=== PATIENT | female | born 1950 | race Caucasian/White ===

== ENCOUNTER → 2021-07-28 10:04 | Outpatient (CLI) | payer MEDICARE, BC, SELFPAY | PROVIDERS: PCP Internal Medicine; Visit Provider Nurse Practitioner | DX: Z20.822 Contact with and (suspected) exposure to COVID-19 (principal) | CPT/HCPCS: C9803; U0003; U0005 ==

== ENCOUNTER → 2021-08-11 08:11 | Outpatient (CLI) | payer MEDICARE, BC, SELFPAY | PROVIDERS: PCP Internal Medicine; Visit Provider Nurse Practitioner | DX: Z20.822 Contact with and (suspected) exposure to COVID-19 (principal) | CPT/HCPCS: C9803; U0003; U0005 ==

== ENCOUNTER → 2021-08-31 08:24 | Outpatient (CLI) | payer MEDICARE, BC, SELFPAY | PROVIDERS: Visit Provider Nurse Practitioner | DX: U07.1 COVID-19 (principal) | CPT/HCPCS: C9803; U0003; U0005 ==

== ENCOUNTER → 2022-02-26 08:35 | Outpatient (CLI) | payer MEDICARE, OTHER, SELFPAY ==
--- NOTE | 2022-02-26 08:41 | XR_ITS ---
FINAL REPORT CLINICAL HISTORY: pain FINDINGS: LEFT FOOT Three weight-bearing views of the left foot demonstrate no acute fracture or dislocation. There is hallux valgus deformity. There is mild degenerative change. There are calcaneal spurs. The soft tissues are unremarkable. IMPRESSION: Mild degenerative change. Reviewed, Interpreted and Dictated by Rasta Moreno III, MD Transcribed by Kaycee Rajput Authenticated and [facility]
--- NOTE | 2022-02-26 08:41 | XR_ITS ---
FINAL REPORT CLINICAL HISTORY: pain, hx of bone spur FINDINGS: RIGHT FOOT Three weight-bearing views of the right foot demonstrate no acute fracture or dislocation. There is hallux valgus deformity. There is mild degenerative change. There are calcaneal spurs. The soft tissues are unremarkable. IMPRESSION: Mild degenerative change. Reviewed, Interpreted and Dictated by Rasta Moreno III, MD Transcribed by Kaycee Rajput Authenticated and . [facility]
== END ==
PROVIDERS: PCP Internal Medicine; Visit Provider Podiatrist
DX: M79.672 Pain in left foot (principal); M79.671 Pain in right foot
CPT/HCPCS: 73630

== ENCOUNTER → 2022-04-13 09:55 | Outpatient (CLI) | payer MEDICARE, BC, SELFPAY ==
[2022-04-13 16:13] LABS: Basophils # 0.1 K/mm3 (0-0.2); Basophils % 1.9 % (0.1-2.0); Eosinophils # 0.1 K/mm3 (0.0-0.4); Eosinophils % 1.9 % (0.1-12.0); Hematocrit 42.5 % (37.0-47.0); Hemoglobin 13.1 g/dL (12.2-16.2); Lymphocytes # 0.9 K/mm3 (0.7-4.5); Lymphocytes % 14.8 % (10-50); Mean Corpuscular HGB Conc 30.7 g/dL (31.8-35.4); Mean Corpuscular Hemoglobin 29.4 pg (27.0-31.2); Mean Corpuscular Volume 95.6 fl (81-99); Mean Platelet Volume 9.9 fl (7.4-10.4); Monocytes # 0.4 K/mm3 (0.1-1.0); Monocytes % 6.5 % (1.7-9.3); Neutrophils # 4.3 K/mm3 (1.8-7.8); Neutrophils % 74.9 % (37.0-80.0); Platelet Count 286 K/mm3 (142-424); Red Blood Count 4.44 M/mm3 (4.20-5.40); Red Cell Distribution Width 13.4 % (11.5-17.5); White Blood Count 5.8 K/mm3 (4.8-10.8)
[2022-04-13 16:58] LABS: Alanine Aminotransferase 20 U/L (12-78); Albumin Level 4.2 g/dl (3.5-5.0); Albumin/Globulin Ratio 1.9 (1.1-1.8); Alkaline Phosphatase 113 U/L (38-126); Anion Gap 10.2 mEq/L (5-15); Aspartate Amino Transferase 29 U/L (14-36); Bilirubin,Total 0.3 mg/dl (0.2-1.3); Blood Urea Nitrogen 20 mg/dl (7-17); Calcium 9.3 mg/dl (8.4-10.2); Carbon Dioxide 28 mmol/L (22.0-30.0); Chloride 106 mmol/L (98-107); Chol/HDL Ratio 4.6 (1-3.5); Cholesterol 222 mg/dl (140-200); Estimated Glomerular Filt Rate 83 ml/min (>60); GFR (African American) 100 ML/MIN (>60); Globulin 2.2 g/dL (1.3-3.2); Glucose 87 mg/dl (74-100); HDL Cholesterol 48 mg/dl (40-60); Potassium 4.2 mmoL/L (3.5-5.1); Sodium 140 mmol/L (136-145); Total Protein,Serum 6.4 g/dl (6.3-8.2); Triglycerides 144 mg/dl (30-150); VLDL Cholesterol 29 mg/dL (0-40)
[2022-04-15 08:24] LABS: Direct LDL Cholesterol 135 mg/dL (100-129)
== END ==
PROVIDERS: PCP Internal Medicine; Visit Provider Internal Medicine
DX: R00.2 Palpitations (principal); I10 Essential (primary) hypertension; E78.5 Hyperlipidemia, unspecified; F41.9 Anxiety disorder, unspecified; K21.9 Gastro-esophageal reflux disease without esophagitis
CPT/HCPCS: 80053; 80061; 85025

== ENCOUNTER 2022-04-22 09:00 | Outpatient (RCR) | payer MEDICARE, BC, SELFPAY ==
--- NOTE | 2022-04-13 17:53 | HMH.PTOPEV ---
PT Outpatient Evaluation Rehab PT Outpatient Evaluation Start: 04/13/22 17:37 Freq: Status: Active Protocol: Document 04/13/22 17:37 CACHORRO (Rec: 04/13/22 17:53 CACHORRO [id number]) E-signed By Joby Reyes, PT Outpatient Therapy Subjective History Subjective History Patient is a 71 year old female presenting to outpatient PT with reports of B foot/ankle pain (R>L) starting approx 2 year ago of insidious onset. Most recent imaging indicates B bunions and calcaneal spurs. Patient referred for B achilles tendonitis. No other comorbidities to report. Chief Complaint Pain,Stiff,Swelling Symptom Type Burning Symptoms Relieved By Rest/Positioning,Heat,OTC Meds Prior Functional Limitations None Current Functional Limitations Housework,Standing,Walking Symptom Description Intermittent Level of pain today (0-10) 0 Pain scale - at its best (0-10) 0 Pain scale - at its worst (0-10) 8 Ankle/Foot Eval Gait Observation General Gait Pattern Observation Antalgic Gait,Decrease Weight Bear (R) Palpation Tenderness bilateral Ankle/Foot Palpation Findings Tenderness Ankle/Foot Palpation Overall Comment Distal achilles insertion R>L (3/4, 2/4) ROM left Ankle/Foot Dorsiflexion w/Knee Extended 0 Active Range Motion (degrees) Ankle/Foot Dorsiflexion w/Knee Extended 6 Passive Range (degrees) Ankle/Foot Plantar Flexion Active Range WFL of Motion (degrees) Ankle/Foot Eversion Active Range of WFL Motion (degrees) Ankle/Foot Inversion Active Range of WFL Motion (degrees) Ankle/Foot ROM Limitations Soft Tissue Tightness Great Toe ROM Reason Not Measured Within Functional Limits right Ankle/Foot Dorsiflexion w/Knee Extended -2 Active Range Motion (degrees) Ankle/Foot Dorsiflexion w/Knee Extended 5 Passive Range (degrees) Ankle/Foot Plantar Flexion Active Range WFL of Motion (degrees) Ankle/Foot Eversion Active Range of WFL Motion (degrees) Ankle/Foot Inversion Active Range of WFL Motion (degrees) Great Toe ROM Reason Not Measured Within Functional Limits MMT bilateral Ankle Dorsiflexion Strength Grade 5 Normal Ankle Plantarflexion Strength Grade 5 Normal Foot Eversion Strength Grade 5 Normal Foot Inversion Strength Grade 5 Normal Special Tests Ankle Anterior Drawer Test Negative Left,Negative Right Ankle Eversion Test
== END 2022-04-22 09:05 | disposition home or self-care (01) ==
LOC: PT 09:00
PROVIDERS: PCP Internal Medicine; Visit Provider Podiatrist
DX: M76.62 Achilles tendinitis, left leg (principal); M19.071 Primary osteoarthritis, right ankle and foot; M19.072 Primary osteoarthritis, left ankle and foot; R60.0 Localized edema; M76.61 Achilles tendinitis, right leg
CPT/HCPCS: 97010; 97014; 97035; 97110; 97163; G0283

== ENCOUNTER 2023-04-26 14:17 | Emergency (ER) | payer MEDICARE, BC, SELFPAY ==
[2023-04-26] VITALS (8 sets, daily range): BP systolic 113–158; BP diastolic 63–109; PULSE 86–97; RESP 16–23; TEMP 36.8; O2SAT 91–100; BMI 28.5; BMI 26.8
--- NOTE | 2023-04-26 14:16 | ECG_ITS ---
APPROVED REPORT Exam: Resting ECG HR:93 bpm ECG Measurements Heart Rate 93 AXES CO 152 P 56 QRSd 108 QRS 52 QT 353 T -22 QTc 404 Conclusion SINUS RHYTHM NONSPECIFIC ST & T-WAVE ABNORMALITY ABNORMAL ECG UNCONFIRMED REPORT Electronically signed by : James Mo MD 04/26/2023 19:55:42
[2023-04-26 14:39] LABS: Basophils # 0.1 K/mm3 (0-0.2); Eosinophils # 0.1 K/mm3 (0.0-0.4); Eosinophils % 1.6 % (0.1-12.0); Hematocrit 41.6 % (37.0-47.0); Hemoglobin 13.4 g/dL (12.2-16.2); Lymphocytes # 1.1 K/mm3 (0.7-4.5); Lymphocytes % 15.4 % (10-50); Mean Corpuscular HGB Conc 32.3 g/dL (31.8-35.4); Mean Corpuscular Hemoglobin 29.2 pg (27.0-31.2); Mean Corpuscular Volume 90.6 fl (81-99); Mean Platelet Volume 8.1 fl (7.4-10.4); Monocytes # 0.5 K/mm3 (0.1-1.0); Monocytes % 6.6 % (1.7-9.3); Neutrophils # 5.3 K/mm3 (1.8-7.8); Neutrophils % 75.4 % (37.0-80.0); Platelet Count 280 K/mm3 (142-424)
[2023-04-26 14:40] LABS: Chloride 107 mmol/L (98-107); Potassium 3.7 mmoL/L (3.5-5.1); Sodium 144 mmol/L (136-145)
[2023-04-26 14:43] LABS: Alanine Aminotransferase 18 U/L (12-78); Albumin Level 3.9 g/dl (3.5-5.0); Albumin/Globulin Ratio 1.6 (1.1-1.8); Alkaline Phosphatase 100 U/L (38-126); Anion Gap 12.7 mEq/L (5-15); Aspartate Amino Transferase 26 U/L (14-36); Bilirubin,Total 0.4 mg/dl (0.2-1.3); Blood Urea Nitrogen 21 mg/dl (7-17); Calcium 8.9 mg/dl (8.4-10.2); Carbon Dioxide 28 mmol/L (22.0-30.0); Creatinine Clearance Estimated 60 mL/min (50-200); Estimated Glomerular Filt Rate 55 ml/min (>60); GFR (African American) 66 ML/MIN (>60); Globulin 2.5 g/dL (1.3-3.2); Glucose 162 mg/dl (74-100); Total Protein,Serum 6.4 g/dl (6.3-8.2)
[2023-04-26 14:45] LABS: Microscopic, Urine URINE MICROSCOPIC (MICROSCOPIC)
--- NOTE | 2023-04-26 14:45 | PC.NURSE ---
pt request to go to restroom and clean herself up rather than have staff help her. pt back in room at this time. Pt reports feel well, no dizziness reported. Pt tolerated ambulation well.
[2023-04-26 14:47] LABS: Appearance,Urine CLEAR (Clear); Blood, Urine Negative (Negative); Color,Urine YELLOW (Yellow); Glucose,Urine (UA) Negative (Negative); Ketones,Urine 1+ (Negative); Leukocyte Esterase,Urine TRACE (Negative); Nitrate,Urine Negative (Negative); Protein,Urine TRACE (Negative); Specific Gravity, Urine >= 1.030 (1.005-1.030); Urobilinogen,Urine 0.2 EU/dl (0.2)
[2023-04-26 14:58] LABS: Bilirubin,Urine 1+ (Negative)
[2023-04-26 15:02] LABS: RBC,Urine Occasional #/hpf (0-3)
[2023-04-26 15:03] LABS: Amorphous Sediment,Urine 1+ /lpf; Bacteria,Urine 2+ /lpf
[2023-04-26 15:04] LABS: Mucus,Urine 1+ /lpf
--- NOTE | 2023-04-26 15:18 | XR_ITS ---
FINAL REPORT CLINICAL HISTORY: syncope FINDINGS: SINGLE-VIEW CHEST The heart size is normal. The mediastinum is normal. The lungs are clear. There is no pneumothorax. IMPRESSION: No acute cardiopulmonary process. Reviewed, Interpreted and Dictated by Raji Guevara MD Transcribed by Shayna Avila Authenticated and [facility]
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
[2023-04-26 16:45] LABS: Troponin I < 0.01 ng/ml (0.00-0.034)
[2023-04-26 17:44] LABS: Troponin I < 0.01 ng/ml (0.00-0.034)
== END 2023-04-26 18:15 | disposition home or self-care (01) ==
PROVIDERS: Student in an Organized Health Care Education/Training Program; Emergency Provider Emergency Medicine; PCP Internal Medicine
DX: R55 Syncope and collapse (principal); I95.9 Hypotension, unspecified; R11.2 Nausea with vomiting, unspecified
CPT/HCPCS: 71045; 80053; 81001; 84484; 85025; 87086; 93005; 96360; 99285

== ENCOUNTER → 2023-04-29 12:31 | Outpatient (CLI) | payer MEDICARE, BC, SELFPAY ==
[2023-04-29 13:52] LABS: Chol/HDL Ratio 3.6 (1-3.5); Cholesterol 204 mg/dl (140-200); Glucose,Fasting 98 mg/dl (74-100); HDL Cholesterol 57 mg/dl (40-60); Triglycerides 125 mg/dl (30-150); VLDL Cholesterol 25 mg/dL (0-40)
[2023-04-29 14:03] LABS: Direct LDL Cholesterol 111.12 mg/dL (100-129)
== END ==
PROVIDERS: PCP Internal Medicine; Visit Provider Internal Medicine
DX: R55 Syncope and collapse (principal); E78.5 Hyperlipidemia, unspecified; I10 Essential (primary) hypertension; R73.01 Impaired fasting glucose
CPT/HCPCS: 80061; 82947

== ENCOUNTER 2023-11-29 09:54 | Outpatient (POV) | payer MEDICARE, BC, SELFPAY | END 2023-11-29 23:59 | disposition home or self-care (01) | LOC: SC 09:54 | PROVIDERS: PCP Internal Medicine; Visit Provider Dermatology | DX: Z00.00 Encounter for general adult medical examination without abnormal findings (principal) ==

== ENCOUNTER 2024-03-23 12:18 | Emergency (ER) | payer MEDICARE, BC, SELFPAY ==
[2024-03-23 12:19] VITALS: BP 152/77; PULSE 88; RESP 19; TEMP 37; O2SAT 96; BMI 27.8
--- NOTE | 2024-03-23 12:26 | ECG_ITS ---
APPROVED REPORT Exam: Resting ECG HR:85 bpm ECG Measurements Heart Rate 85 AXES NV 155 P 55 QRSd 86 QRS 42 QT 348 T 52 QTc 391 Conclusion SINUS RHYTHM NONSPECIFIC T-WAVE ABNORMALITY BORDERLINE ECG Electronically signed by : WILLY PEÑALOZA, 03/24/2024 15:39:17
--- NOTE | 2024-03-23 13:15 | XR_ITS ---
FINAL REPORT CLINICAL HISTORY: syncope FINDINGS: SINGLE-VIEW CHEST The heart size is normal. The mediastinum is normal. The lungs are clear. There is no pneumothorax. IMPRESSION: No acute cardiopulmonary process. Reviewed, Interpreted and Dictated by Rasta Moreno III, MD Transcribed by Shayna Avila Authenticated and [facility]
--- NOTE | 2024-03-23 13:16 | XR_ITS ---
FINAL REPORT CLINICAL HISTORY: fall, R hip pain FINDINGS: Right hip Three views were obtained. There is no acute fracture or dislocation. There are mild degenerative changes of both hips. No soft tissue abnormality is identified. IMPRESSION: No acute process. If symptoms persist or are severe, recommend CT or MRI. Reviewed, Interpreted and Dictated by Rasta Moreno III, MD Transcribed by Shayna Avila Authenticated and [facility]
--- NOTE | 2024-03-23 13:25 | ED_ITS ---
Discharge Plan Disposition Patient Disposition: Home, Self-Care Prescriptions Prescriptions: No Action nitrofurantoin macrocrystal 100 mg capsule 100 mg PO BID 5 Days Qty: 10 0RF Rx Instructions: must administer with a meal/food Referrals Follow up/Referrals: Hiro Kearney MD [Primary Care Provider] - See instructions Activity Restrictions/Add. Instructions Additional Instructions/Restrictions: Call your family doctor to establish care for this visit to the emergency department and schedule follow-up within 48 hours to ensure improvement. If you have any worsening of your condition or any other concerning signs or symptoms, return to the emergency department or your primary care doctor for further evaluation. Follow-up with cardiology, information listed here. Tell them you have a bus monitor on and need follow-up. Clinical Impressions Clinical Impression: Syncope and collapse Instructions Patient Instructions: DI for Syncope in Adults (Fainting), DI for Syncope in Children (Fainting) Print Language Print Language: [place] Discharge ED Provider: Urban Padron General Adult HPI General Chief complaint: Syncope Stated complaint: AO 03/22 2100 passed out and fell Time Seen by Provider: 03/23/24 13:01 Mode of Arrival: Ambulatory Source of Information: Patient Limitations: No Limitations Description of Symptoms (Recalled from ER Triage Doc. by RN): pt presents to ED with c/o syncopal episode last night. pt reports that this same incident happened at this time last year. pt followed up with pcp and that was it. pt reports she simply passed out last night and hit right wrist and right elbow. History of Present Illness HPI narrative: Please note that above description of symptoms, in this electronic medical record under categorization of recalled from ER triage doctor by RN are reflective of an initial nursing assessment, however, is not reflective of my full history and physical exam that was personally taken and clarified. Consequentially, this preceding description of symptoms, which may include the patient's categorized chief complaint in the EMR, do not reflect my personal clinical impression, and the ultimate description of history of present illness and patient stated complaints should be deferred to this section of the note. Unless stated otherwise or congruent with this section of the note, additional signs, symptoms, or incongruence should be interpreted as inaccurate with my clinical impression. Related Data Previous Rx's ?Medication ?Instructions ?Recorded nitrofurantoin macrocrystal 100 mg 100 mg PO BID 5 days #10 caps 04/26/23 capsule Allergies Allergy/AdvReac Type Severity Reaction Status Date / Time codeine [CODEINE] Allergy Unknown SWEATING Verified 05/17/22 10:00 [facility] Disclaimer: The information contained in this section may have been updated after the patient was seen, as this information can be updated by other users. Social History Smoking Status: Never smoker alcohol intake: never current occupational status: retired Travel in the last 8 weeks: None ROS Obtained: Yes All systems reviewed & no additional complaints except as documented Physical Exam General General appearance: alert Head Head exam: atraumatic and normocephalic Eye Eye exam: Present normal appearance, PERRL and EOMI Neck Neck exam: Present normal inspection, full ROM and trachea midline Respiratory Respiratory exam: Present normal lung sounds bilaterally; Absent respiratory distress, wheezes, stridor, accessory muscle use or prolonged expiratory phase Cardiovascular Cardiovascular exam: Present regular rate, normal rhythm and other (Pulses equal symmetric in upper and lower extremities) Abdominal Exam Abdominal exam: Present soft; Absent distention, tenderness or pulsatile mass Extremities Exam Extremities exam: Absent edema Neurological Exam Neurological exam: Present alert, oriented X3 and CN II-XII intact; Absent motor sensory deficit Skin Skin exam: Present warm and dry; Absent diaphoresis or erythema Medical Decision Making Medical Records Medical records reviewed: Yes I reviewed the patient's medical records. Terrence Inquiry Pt receiving controlled substance: No Terrence was queried for this patient: No Vital Signs: 03/23/24 12:19 03/23/24 13:43 03/23/24 15:49 Temperature 98.6 F 98.6 F Temperature Source Oral Pulse Rate 79 72 Pulse Rate [Left Radial] 88 Respiratory Rate 19 16 Blood Pressure 146/92 H 172/83 H Blood Pressure [Right Arm] 152/77 H Blood Pressure Mean [Right Arm] 102 02 Sat by Pulse Oximetry 96 98 Oxygen Delivery Method Room Air Room Air Room Air Lab Data Lab Results 03/23/24 13:36: WBC 5.2, RBC 4.52, Hgb 13.3, Hct 41.8, MCV 92.6, MCH 29.4, MCHC 31.8, RDW 13.8, Plt Count 246, MPV 8.5, Neut % (Auto) 67.5, Lymph % (Auto) 21.4, Toole % (Auto) 7.8, Eos % (Auto) 1.8, Baso % (Auto) 1.5, Neut # (Auto) 3.5, Lymph # (Auto) 1.1, Toole # (Auto) 0.4, Eos # (Auto) 0.1, Baso # (Auto) 0.1, Sodium 142, Potassium 3.6, Chloride 110 H, Carbon Dioxide 29, Anion Gap 6.6, BUN 16, Creatinine 0.80, Estimated Creat Clear 58, Estimated GFR 71, Est GFR ( Amer) 86, Glucose 98, Hemoglobin A1c 5.5, Calcium 9.2, Magnesium 2.1, Total Bilirubin 0.6, AST 27, ALT 22, Alkaline Phosphatase 95, Troponin I < 0.01, N T-Pro-B Natriuret Pep 168 H, Total Protein 6.8, Albumin 4.3, Globulin 2.5, Albumin/Globulin Ratio 1.7 03/23/24 13:36 03/23/24 13:36 Orders (Tests/Meds): ORDERS Category Date Time Status CXR --portable [XR chest portable] Stat Exams 03/23/24 13:15 Completed Hip XR right minimum 2 views [XR hip RT 2-3V w/pelvis] Exams 03/23/24 13:16 Completed Stat CBC w/Auto Diff [Complete Blood Count Auto Diff] Stat Lab 03/23/24 13:36 Completed CMP [Comprehensive Metabolic Panel] Stat Lab 03/23/24 13:36 Completed Hemoglobin A1C Stat Lab 03/23/24 13:36 Completed Magnesium Stat Lab 03/23/24 13:36 Completed NT Pro Brain Natriuretic Pep. Stat Lab 03/23/24 13:36 Completed Trop I [Troponin I] Stat Lab 03/23/24 13:36 Completed ECG holter initial pfn Routine Y 03/23/24 Completed Medical Decision Narrative: This is a 73-year-old female no relevant medical history presenting with syncopal episode versus near syncopal episode. Patient states that yesterday, 03/22, she was getting home from a restaurant, got up out of the car, felt anxious and sick, then fell to the right. She states that she fell to the right side, landed on the ground, remembers the fall and hitting the ground. Did not hit her head. Has not had any symptoms since. States that she was anxious today to get out of bed, worried that she might fall again, but has not had any other associated symptoms including chest pain, nausea, vomiting, lower extremity swelling, shortness of breath, neurologic deficits including weakness. She does state that she has had some numbness in all of her toes it has been going on for months, does not know if it is related. Patient also states that she has been dieting pretty aggressively recently only having a little bit of food and water throughout the day, but they are reportedly protein rich. History was obtained via conversation with patient. On arrival, patient hemodynamically stable, alert, oriented x4, appropriate, GCS 15, moving all extremities spontaneously, pupils equal and reactive to light. Full physical exam performed and significant for very pleasant 73-year-old female no acute distress. Cardiopulmonary exam within normal limits. Neurologically intact with NIHSS 0. Normotensive, nontachycardic, very well-appearing overall. Differential includes orthostatic, vasovagal arrhythmia, ACS, CHF, among other. Patient placed on continuous cardiac monitoring and continuous pulse ox with initial blood pressure 152/77, heart rate 88, saturation 96% on room air. Independent interpretation of EKG shows sinus rhythm 85 beats a minute without ST or T wave changes concern for acute ischemia. CT 155, QRS 86, QTc 391. Workup independently interpreted and significant for nonactionable CBC or chemistry, BNP negative, magnesium normal. Troponin negative. On independent interpretation of imaging, no acute cardiopulmonary airspace disease. See radiology read for full review of final results. Heart score 2. Delta troponin considered, but not deemed necessary as this happened last night and patient has been asymptomatic since. Because this is the second time in a year that this has happened patient, bus monitor was placed and outpatient referral to cardiology was recommended. Given history, physical exam, workup, this most likely represents orthostatic syncope. Patient states that she was just freshly after a large dinner meal, standing up out of car with full recollection of symptoms making it incredibly unlikely that she fully syncopized. Because patient at baseline without signs or symptoms of clinical decompensation, deemed appropriate for discharge. Results were relayed to patient who voiced understanding and were agreeable to outpatient management and follow up. I discussed my clinical impression with patient and answered all questions. At this time, the evidence for any other entities in the differential is insufficient to warrant any further testing or ED observation. This was explained as well. Advisory was given that persistent or worsening symptoms require further evaluation. I confirmed the understanding of this discussion. Pack Press Operator disclaimer Much of this encounter note is an electronic auto slip cover installer spoken language to printed text. Electronic auto slip cover installer of the spoken language may permit errors. Although I have reviewed the note, some errors may still exist. Critical Care Critical Care Time Critical Care Time: No
[2024-03-23 13:43] VITALS: BP 146/92; PULSE 79; O2SAT 98
[2024-03-23 14:02] LABS: Albumin Level 4.3 g/dl (3.5-5.0); Chloride 110 mmol/L (98-107); Potassium 3.6 mmoL/L (3.5-5.1); Sodium 142 mmol/L (136-145)
[2024-03-23 14:04] LABS: Alanine Aminotransferase 22 U/L (12-78); Aspartate Amino Transferase 27 U/L (14-36); Blood Urea Nitrogen 16 mg/dl (7-17); Creatinine Clearance Estimated 58 mL/min (50-200); Estimated Glomerular Filt Rate 71 ml/min (>60); GFR (African American) 86 ML/MIN (>60)
[2024-03-23 14:05] LABS: Albumin/Globulin Ratio 1.7 (1.1-1.8); Alkaline Phosphatase 95 U/L (38-126); Anion Gap 6.6 mEq/L (5-15); Basophils # 0.1 K/mm3 (0-0.2); Basophils % 1.5 % (0.1-2.0); Bilirubin,Total 0.6 mg/dl (0.2-1.3); Calcium 9.2 mg/dl (8.4-10.2); Carbon Dioxide 29 mmol/L (22.0-30.0); Eosinophils # 0.1 K/mm3 (0.0-0.4); Eosinophils % 1.8 % (0.1-12.0); Globulin 2.5 g/dL (1.3-3.2); Glucose 98 mg/dl (74-100); Hematocrit 41.8 % (37.0-47.0); Hemoglobin 13.3 g/dL (12.2-16.2); Lymphocytes # 1.1 K/mm3 (0.7-4.5); Lymphocytes % 21.4 % (10-50); Magnesium 2.1 mg/dl (1.6-2.3); Mean Corpuscular HGB Conc 31.8 g/dL (31.8-35.4); Mean Corpuscular Hemoglobin 29.4 pg (27.0-31.2); Mean Corpuscular Volume 92.6 fl (81-99); Mean Platelet Volume 8.5 fl (7.4-10.4); Monocytes # 0.4 K/mm3 (0.1-1.0); Monocytes % 7.8 % (1.7-9.3); Neutrophils # 3.5 K/mm3 (1.8-7.8); Neutrophils % 67.5 % (37.0-80.0); Platelet Count 246 K/mm3 (142-424); Red Blood Count 4.52 M/mm3 (4.20-5.40); Red Cell Distribution Width 13.8 % (11.5-17.5); Total Protein,Serum 6.8 g/dl (6.3-8.2); White Blood Count 5.2 K/mm3 (4.8-10.8)
[2024-03-23 14:14] LABS: NT Pro Brain Natriuretic Pep. 168 pg/mL (0-125)
[2024-03-23 14:19] LABS: Troponin I < 0.01 ng/ml (0.00-0.034)
[2024-03-23 15:09] LABS: Hemoglobin A1C 5.5 % (4.0-6.0)
[2024-03-23 15:49] VITALS: BP 172/83; PULSE 72; RESP 16; TEMP 37; O2SAT 100
== END 2024-03-23 15:49 | disposition home or self-care (01) ==
PROVIDERS: Emergency Provider Emergency Medicine; PCP Internal Medicine
DX: R55 Syncope and collapse (principal)
CPT/HCPCS: 71045; 73502; 80053; 83036; 83735; 83880; 84484; 85025; 93005; 93225; 93227; 99284

== ENCOUNTER 2025-04-24 14:15 | Outpatient (CLI) | payer MEDICARE, BC, SELFPAY ==
[2025-04-24 17:23] LABS: Hematocrit 42.2 % (37.0-47.0); Hemoglobin 13.8 g/dL (12.2-16.2); Immature Granulocytes % 0.3 %; Mean Corpuscular HGB Conc 32.7 g/dL (31.8-35.4); Mean Corpuscular Hemoglobin 29.6 pg (27.0-31.2); Mean Corpuscular Volume 90.6 fl (81-99); Nucleated Red Blood Cells % 0 %; Platelet Count 307 K/mm3 (142-424); Red Blood Count 4.66 M/mm3 (4.20-5.40); Red Cell Distribution Width-SD 40.6 fL; White Blood Count 7.5 K/mm3 (4.8-10.8)
[2025-04-24 17:40] LABS: Alanine Aminotransferase 13 U/L (12-78); Albumin Level 4.7 g/dl (3.5-5.0); Albumin/Globulin Ratio 1.9 (1.1-1.8); Alkaline Phosphatase 104 U/L (38-126); Anion Gap 14.9 mEq/L (5-15); Aspartate Amino Transferase 23 U/L (14-36); Bilirubin,Total 0.5 mg/dl (0.2-1.3); Blood Urea Nitrogen 19 mg/dl (7-17); Calcium 9.5 mg/dl (8.4-10.2); Carbon Dioxide 26 mmol/L (22.0-30.0); Chloride 106 mmol/L (98-107); Creatinine,Serum 1.00 mg/dl (0.52-1.04); Estimated Glomerular Filt Rate 55 ml/min (>60); GFR (African American) 66 ML/MIN (>60); Globulin 2.5 g/dL (1.3-3.2); Glucose 83 mg/dl (74-100); Potassium 4.9 mmoL/L (3.5-5.1); Sodium 142 mmol/L (136-145); Total Protein,Serum 7.2 g/dl (6.3-8.2)
[2025-04-24 18:11] LABS: Thyroid Stimulating Hormone 1.21 uIU/mL (0.465-4.68)
[2025-04-24 18:30] LABS: Vitamin B12 253 pg/mL (239-931)
[2025-04-24 18:53] LABS: Folate 6.42 ng/mL
--- OUTSIDE RECORDS SUMMARY | 2025-04-25 10:34 | XMS_ITS | Referral Summary ---
Author Organization [employer] ([place], [place], [place], [place]) Address [address] [place] [address] Care Team Providers Care Chemical Recovery Operator Name Role Phone Hiro Kearney MD Primary Care Provider [phone] Social History Tobacco Use Types Packs/Day Years Used Date Smoking Tobacco: Never Assessed Food Insecurity Answer Date Recorded Food run out past 12 months Not on file 08/08 Food did not last past 12 months Not on file 08/26/2023 Employment Answer Date Recorded Help finding and keeping a job Not on file 0 08/26/2023 Family and Community Support Answer Randal e Recorded Help with Day to Day Activities Not on file 08/26/2023 Feeling Lonely or Isolated Not on file 08/26 Educational Attainment Answer Date Jan rded Speak language other than [place] at home Not on file 08/26/2023 Want help with school or training Not on file 08/26/2023 Substance Use Answer Date Recorded Used prescription meds for non-medical reasons N ot on file 08/26/2023 Used illegal drugs past 12 months Not on file 08/26/2023 Comments Unknown Sex and Gender Information Value Date Recorded Sex Assigned at Female 02/02/2022 6:13 PM CDT Legal Sex Female 6:13 PM CDT Gender Identity Female 02/02/2022 6:13 PM CDT Sexual Orientation Not on file Plan of Treatment Not on file Procedures Procedure Name Priority Date/Time Associated Diagnosis Comments MM DIGITAL MAMMO SCREEN WITH JELANI BILATERAL Routine 09/19/2023 11:16 AM EST Visit for screening mammogram from Last 3 Months or Most Recently Relevant to Health Maintenance Results * MM digital mammo screen with jelani bilateral (09/19/2023 11:16 AM EST) Anatomical Region Laterality Modality Breast Bilateral Mammography 09/19/2023 11:2 2 AM EST Impressions 09/19/2023 11:27 AM EST FINAL IMPRESSION: Stable mammogram. No findings suspicious for malignancy. Bi-RADS: ACR BI-RADS 1: Negative. RECOMMENDATIONS: Annual screening mammography. A letter including results and recommendations was sent to the patient. Density notification was included for patients with pattern 3 or 4 breast tissue. Patient information was entered into a reminder system with a target due date for the next mammogram. At our facility, a [place] marker is positioned over a visible skin lesion and a linear marker is used to indicate a scar. A triangular marker is placed on a self reported palpable finding. Note: Mammography does not detect approximately 10-15% of breast cancers. An annual clinical breast exam by the patient's breast care physician and regular monthly self breast exams by the patient are integral parts of breast cancer screening, in addition to annual mammography. A normal mammogram does not completely exclude the presence of breast cancer, especially if there is an abnormal finding on physical exam. When clinically indicated, a biopsy should not be deferred because of a normal mammogram report. Narrative 09/19/2023 11:27 AM EST PROCEDURE: Digital screening mammogram with Digital Breast Tomosynthesis (DBT). REASON FOR EXAM: Routine screening. FAMILY HISTORY: No family history of breast cancer. COMPARISON STUDY: 2022 through 2016 from [facility] FINDINGS: Craniocaudal and mediolateral oblique images of both breasts were obtained in 2D and DBT modes. Synthesized views were reconstructed from DBT data. The breast tissue has pattern b (scattered fibroglandular densities). There is no evidence of dominant mass, architectural distortion, or suspicious calcifications. The mammogram was interpreted with the benefit of computer aided detection (CAD). Hiro Kearney MD IM MAMMOGRAPHY ORDERABLES Fin al Result from Last 3 Months or Most Recently Relevant to Health Maintenance Insurance MEDICARE PART A B BLUE CROSS/BLUE SHIELD Care Teams Chemical Recovery Operator Relationship Specialty Start Date End Date Hiro Kearney MD [address] [place] [id number] PCP - General General Internal Medicine 09/16/22
--- OUTSIDE RECORDS SUMMARY | 2025-04-25 10:35 | XMS_ITS | Clinical Summary ---
Author Organization Healthcare Address [address] [place] [address] Care Team Providers Care Bull Float Finisher Name Role Phone Hiro Kearney MD Primary Care Provider [phone] Social History Tobacco Use Types Packs/Day Years Used Date Smoking Tobacco: Never Assessed Comments Unknown Sex and Gender Information Value Date Recorded Sex Assigned at Not on file Legal Sex Female 8:10 PM EDT Gender Identity Not on file Sexual Orientation Not on file Plan of Treatment Health Maintenance Due Date Last Done Comments [facility]-Bone Density Scan 1952 [facility]-Depression Screening 1952 [facility]-Hepatitis C Screening 1952 [facility]-Medicare Annual Wellness (AWV) 1952 [facility]-/Child/Adol SDOH Screenings 1952 [facility]- SDOH Screenings 1970 [facility]-Adult SDOH Screenings 1970 [facility]Y-DTaP,Tdap,and Td Vaccines (1 - Tdap) 12/25/1971 CT Colonography 1997 Colonoscopy 1997 FIT-DNA 1997 FIT 1997 FOBT 1997 Sigmoidoscopy 1997 [facility]-Colorectal Cancer Screening 1997 [facility]-Pneumococcal Vaccine: 50+ Years (1 of 1 - PCV) 2002 [facility]Y-Zoster Vaccines (1 of 2) 2002 [id number]-63 Vaccine (1 - 2023- season) 2025 [facility]-Influenza Vaccine (#1) 2025 [facility]-Breast Cancer Screening 09/19/202509/08, 09/19/2023, 09/16/2022, Additional history exists [facility]-RSV Vaccine: 60+ Years or (1 - 1-dose 75+ series) 12/25/2027 HPV Vaccines Aged Out No longer eligi ble based on patient's age to complete this topic [facility]-HIB Vaccines Aged Out No longer e ligible based on patient's age to complete this topic UKY-Hepatitis A Vaccines Aged Out No longer eligible based on patient's age to complete this topic UKY-IPV Vaccines Aged Out No longer e ligible based on patient's age to complete this topic UKY-Rotavirus Vaccines Aged Out No lo nger eligible based on patient's age to complete this topic Insurance MEDICARE Care Teams Bull Float Finisher Relationship Specialty Start Date End Date Hiro Kearney MD [address] [facility] [address] [place] [address] PCP - General 11/09/21
--- OUTSIDE RECORDS SUMMARY | 2025-04-25 10:35 | XMS_ITS | Clinical Summary ---
Author Organization [employer] ([place], [place], [place], [place]) Address [address] [place] [address] Care Team Providers Care Triage Rn Name Role Phone Hiro Kearney MD Primary Care Provider [phone] Social History Tobacco Use Types Packs/Day Years [...] Date Jan rded Speak language other than [place] at home Not on file 08/26/2023 Want [...] Health Maintenance Due Date Last Done Comments Medicare Initial AWV [id number] CT Colonography 1952 Colonoscopy 1952 Colorectal Cancer Screening 1952 DXA SCAN 1952 FOBT/FIT 1952 Fit-DNA (Cologuard) 1952 Sigmoidoscopy 1952 Depression Screening (12+) 1964 Tobacco Cessation Counseling and Screening (12+) 1964 Hepatitis C Screening 1970 DTAP/TDAP/TD VACCINES (1 - Tdap) 12/25/1971 Pneumococcal 50+ years (1 of 1 - PCV) 2002 Shingles Vaccine (Zoster) (1 of 2) 2002 Falls Risk Screening 08/08/2024 COVID-19 VACCINE (1 - season) 2025 Influenza Vaccine (#1) 2025 Breast Cancer Screening 09/19/2025 09/19/2023, 09/16 Respiratory Syncytial Virus (RSV) Adult or (1 - 1-dose 75+ series) 12/25/2027 Procedures Procedure Name Priority Date/Time Associated Diagnosis [...] the next mammogram. At our facility, a little [place] marker is positioned over a visible skin [...] cancer. COMPARISON STUDY: 2022 through 2016 from [facility] FINDINGS: Craniocaudal and mediolateral oblique images of both breasts were obtained in 2D and DBT modes. Synthesized views were reconstructed from DBT data. The breast tissue has pattern b (scattered fibroglandular densities). There is no evidence of dominant mass, architectural distortion, or suspicious calcifications. The mammogram was interpreted with the benefit of computer aided detection (CAD). Hiro Kearney MD IMG MAMMOGRAPHY ORDERABLES Fin al Result from Last 3 Months or Most Recently Relevant to Health Maintenance Insurance MEDICARE PART A B CROSS/BLUE SHIELD Care Teams Triage Rn Relationship Specialty Start Date End Date Hiro Kearney MD [address] [place] [address] PCP - General General Internal Medicine 09/16/22
--- OUTSIDE RECORDS SUMMARY | 2025-04-25 10:35 | XMS_ITS | Encounter Summary ---
Author Organization [facility] ([place], [place], [place], [place]) Address [address] [place] [address] Care Team Providers Care Supervisor Harvesting Name Role Phone Hiro Kearney MD Primary Care Provider Reason for Referral * Mammography (Routine) - Closed Specialty Diagnoses / Procedures Referred By Modesta t Referred To Contact Diagnoses Visit for screening mammogram Procedures MM digital mammo screen with lalitha bilateral Hiro Kearney MD [address] [place] [address] Phone: tel: fax: Referral ID Status Reason Start Date Expiration Date Visits Re quested Visits Authorized [id number] Closed 09/19/2023 03/17/2024 1 1 Encounter Details Date Type Department Care Team (Late st Contact Info) Description 09/16/2022 Outside Orders [facility] Breast [address] [place] [id number] Hiro Kearney MD [address] [place] [address] Visit for screening mammogram (Primary Dx) Social History Tobacco Use Types Packs/Day Years Used Date Smoking Tobacco: Never Assessed Comments Unknown Sex and Gender Information Value Date Recorded Sex Assigned at Female 02/02/2022 6:13 PM CDT Legal Sex Female 6:13 PM CDT Gender Identity Female 02/02/2022 6:13 PM CDT Sexual Orientation Not on file documented as of this encounter Plan of Treatment Not on file documented as of this encounter Results * MM digital mammo screen with lalitha bilateral (09/19/2023 11:16 AM EST) Anatomical Region [...] the next mammogram. At our facility, a [place] marker is positioned over a visible skin [...] cancer. COMPARISON STUDY: 2022 through 2016 from [facility] FINDINGS: Craniocaudal and mediolateral oblique images of [...] MD IMG MAMMOGRAPHY ORDERABLES Fin al Result documented in this encounter Visit Diagnoses Diagnosis Visit for screening mammogram- Primary Visit for screening mammogram documented in this encounter Care Teams Supervisor Harvesting Relationship Specialty Start Date End Date Hiro Kearney MD [address] [place] [address] PCP - General General Internal Medicine 09/16/22 documented as of this encounter
== END 2025-04-24 23:59 ==
LOC: LAB.DROPOF 04-25 10:31
PROVIDERS: PCP Internal Medicine; Visit Provider Internal Medicine
DX: R41.3 Other amnesia (principal); R03.0 Elevated blood-pressure reading, without diagnosis of hypertension
CPT/HCPCS: 80053; 82607; 82746; 84443; 85025; 85651

== ENCOUNTER 2025-05-06 07:57 | Outpatient (CLI) | payer MEDICARE, BC, SELFPAY ==
--- OUTSIDE RECORDS SUMMARY | 2025-05-06 08:00 | XMS_ITS ---
Author Organization Unknown TREATMENT PLAN [facility] Start Date Provider Encounter for Check-up [phone] [facility]
--- OUTSIDE RECORDS SUMMARY | 2025-05-06 08:00 | XMS_ITS | Referral Summary ---
Author Organization [employer] ([place], [place], [place], [place]) Address [address] [place] [address] Care Team Providers Care Technical Sales Associate Name Role Phone Hiro Kearney MD Primary Care Provider [phone] Social History Tobacco Use Types Packs/Day Years [...] Date Jan rded Speak language other than Finnish at home Not on file 08/26/2023 Want [...] the next mammogram. At our facility, a [place] marker is positioned over a visible skin [...] cancer. COMPARISON STUDY: 2022 through 2016 from [facility] FINDINGS: Craniocaudal and mediolateral oblique images [...] A B BLUE CROSS/BLUE SHIELD Care Teams Technical Sales Associate Relationship Specialty Start Date End Date Hiro Kearney MD [address] [place] [address] PCP - General General Internal Medicine 09/16/22
--- OUTSIDE RECORDS SUMMARY | 2025-05-06 08:00 | XMS_ITS | Clinical Summary ---
Author Organization Healthcare Address [address] [place] [address] Care Team Providers Care Fern Gatherer Name Role Phone Hiro Kearney MD Primary Care Provider [phone] Social History Tobacco Use Types Packs/Day Years [...] 2002 [facility]Y-Zoster Vaccines (1 of 2) 2002 [id number]-49 Vaccine (1 - 2023- season) 2025 [facility]Y-Influenza [...] complete this topic Insurance MEDICARE Care Teams Fern Gatherer Relationship Specialty Start Date End Date Hiro Kearney MD [address] [facility] [address] [place] [address] PCP - General 11/09/21
--- OUTSIDE RECORDS SUMMARY | 2025-05-06 08:00 | XMS_ITS | Clinical Summary ---
Author Organization [employer] ([place], [place], [place], [place]) Address [address] [place] [address] Care Team Providers Care Nurse Rn Bsn Name Role Phone Hiro Kearney MD Primary Care Provider [phone] Social History Tobacco Use Types Packs/Day Years [...] Date Jan rded Speak language other than [place] at home Not on file 08/26/2023 Want [...] the next mammogram. At our facility, a [place] marker is positioned over a visible skin [...] cancer. COMPARISON STUDY: 2022 through 2016 from [facility] FINDINGS: Craniocaudal and mediolateral oblique [...] PART A B CROSS/BLUE SHIELD Care Teams Nurse Rn Bsn Relationship Specialty Start Date End Date Hiro Kearney MD [address] [place] [address] PCP - General General Internal Medicine 09/16/22
--- OUTSIDE RECORDS SUMMARY | 2025-05-06 08:00 | XMS_ITS | Encounter Summary ---
Author Organization [employer] ([place], [place], [place], [place]) Address [address] [place] [address] Care Team Providers Care Wood Fuel Pelletizer Name Role Phone Hiro Kearney MD Primary Care Provider [phone] Reason for Referral * Mammography (Routine) - Closed Specialty Diagnoses / Procedures Referred By Modesta t Referred To Contact Diagnoses Visit for screening mammogram Procedures MM digital mammo screen with lalitha bilateral Hiro Kearney MD [address] [place] [address] Phone: tel: fax: Referral ID Status Reason Start Date Expiration Date Visits Re quested Visits Authorized [id number] Closed 09/19/2023 03/17/2024 1 1 Encounter Details Date Type Department Care Team (Late st Contact Info) Description 09/16/2022 Outside Orders [facility] Breast [address] [place] [phone] Hiro Kearney MD [address] [place] [address] Visit for screening mammogram (Primary [...] the next mammogram. At our facility, a [place] marker is positioned over a visible skin [...] cancer. COMPAR[facility] ST[facility]: [facility] FINDINGS: Craniocaudal and mediolateral oblique images of [...] mammogram documented in this encounter Care Teams Wood Fuel Pelletizer Relationship Specialty Start Date End Date Hiro Kearney MD [address] [place] [address] PCP - General General Internal Medicine 09/16/22 documented as of this encounter
--- NOTE | 2025-05-06 08:15 | MR_ITS ---
FINAL REPORT CLINICAL HISTORY: Memory loss short term COMPARISON: None FINDINGS: Multi planar MR imaging was obtained through the brain without contrast. The midline structures appear intact. There is no evidence of Chiari malformation. On T2 and flair axial images the brain parenchyma demonstrates moderate abnormal signal predominantly in the periventricular white matter. On diffusion-weighted images there is no evidence of restricted diffusion. There is mild maxillary sinus mucoperiosteal thickening bilaterally. The seventh and eighth nerve root complexes are intact. IMPRESSION: Moderate abnormal signal predominantly in the periventricular white matter, most likely consistent with ischemic microvascular change. Mild maxillary sinus mucoperiosteal thickening without air-fluid levels. Reviewed, Interpreted and Dictated by Raji Guevara MD Transcribed by Zohra Maher Authenticated and [facility]
== END 2025-05-06 23:59 | disposition home or self-care (01) ==
LOC: RAD 07:58
PROVIDERS: PCP Internal Medicine; Visit Provider Internal Medicine
DX: J34.89 Other specified disorders of nose and nasal sinuses (principal); R41.3 Other amnesia; R90.89 Other abnormal findings on diagnostic imaging of central nervous system
CPT/HCPCS: 70551